=== PATIENT | male | born 1960 | race Caucasian/White ===

== ENCOUNTER → 2018-05-11 10:56 | Outpatient (CLI) | payer MEDICAID, SELFPAY ==
[2018-05-11 12:49] LABS: Thyroid Stim Hormone (TSH) 2.08 uIU/mL (0.358-3.74)
[2018-05-12 07:07] LABS: Thyroid Peroxidase AB 13 IU/mL (0-34)
[2018-05-12 08:28] LABS: T3 Total - Triiodothyronine 1.13 ng/mL (0.6-1.81)
== END ==
PROVIDERS: Family Provider Internal Medicine; PCP Internal Medicine; Visit Provider Dermatology Pediatric Dermatology
DX: E03.8 Other specified hypothyroidism (principal); D22.5 Melanocytic nevi of trunk; L71.8 Other rosacea; L80 Vitiligo; L57.3 Poikiloderma of Civatte
CPT/HCPCS: 36415; 84439; 84443; 84480; 86376

== ENCOUNTER 2022-07-01 12:34 | Emergency (ER) | payer MEDICAID, SELFPAY ==
[2022-07-01 12:35] VITALS: BP 136/83; PULSE 96; RESP 14; TEMP 36.1; O2SAT 96; BMI 27.0
--- NOTE | 2022-07-01 13:04 | RAD_ITS ---
EXAM: XR RIGHT KNEE COMPLETE, 4 OR MORE VIEWS CLINICAL INDICATION: fall TECHNIQUE: Four or more views of the right knee. This report was created using [employer] report generation technology. COMPARISON: None. FINDINGS: BONES/JOINTS: Unremarkable. No acute fracture. No subluxation. Normal alignment. Preservation of the joint space. No sclerotic or destructive changes observed. SOFT TISSUES: Unremarkable. No soft tissue swelling or gas. No radiopaque foreign body. RAD/Knee 4 or More Views IMPRESSION: Negative right knee x-rays. Electronically Signed: Brandon Rodrigez MD at 13:46 EDT ,
--- NOTE | 2022-07-01 13:04 | CT_ITS ---
EXAM: CT MAXILLOFACIAL WITHOUT INTRAVENOUS CONTRAST CLINICAL INDICATION: fall, nasal injury TECHNIQUE: Helically acquired images were obtained of the face without intravenous contrast. This CT exam was performed using one or more of the following dose reduction techniques: automated exposure control, adjustment of the mA and/or kV according to patient size, and/or use of iterative reconstruction technique. This report was created using [employer] report generation technology. COMPARISON: None. FINDINGS: BONES/JOINTS: There is minimal irregularity of the anterior left nasal bone which may represent a nondisplaced fracture. No other fractures are identified. No discrete lytic or blastic abnormalities. SOFT TISSUES: Unremarkable. No focal subcutaneous swelling. No discrete fluid collections. ORBITS: Unremarkable. Both globes are unremarkable. Extraocular muscles are normal. Retrobulbar fat appears unremarkable. SINUSES: Unremarkable as visualized. Clear. MASTOID AIR CELLS: Unremarkable as visualized. Clear. DENTAL: No acute findings. No periodontal osseous erosion. CT/Sinus/Facial Bone IMPRESSION: Minimal irregularity of the anterior left nasal bone which may represent a nondisplaced fracture. No other abnormalities are identified. Electronically Signed: Brandon Rodrigez MD at 14:05 EDT ,
--- NOTE | 2022-07-01 14:15 | EX.ED.DYSGE1 ---
HPI History of Present Illness Chief Complaint: Other, Pain/Inj Narrative Narrative: Patient is a 62-year-old male with no significant medical history presents to the emergency department after falling, striking his right knee, nose. He denies any LOC. Patient is currently on any anticoagulation medicine. Patient states due to his nose swelling, having increased pain he is here for evaluation. [facility] Medical History (Updated 07/01/22 @ 14:23 by DARYL Onofre) Cornea transplant recipient History of broken leg Home Medications Prednisolone Eye Drops (1 Ml) [Pred Forte Eye Drops (1 Ml)] 1 drp DAILY 04/06/17 [History Last Taken Unknown] Allergy/AdvReac Type Severity Reaction Status Date / Time Iodinated Contrast Media AdvReac Vomiting Verified 07/01/22 12:35 [CONTRASTS] Surgical History (Updated 07/01/22 @ 12:48 by Amanda Garcia) History of hernia surgery Social History Smoking Status: Former smoker ROS ROS ED ROS Narrative Constitutional: Negative for fever, chills, weight loss, weakness Eyes: Negative for vision loss, vision change, double vision ENT: Negative for any sore throat, ear pain, congestion. Positive for nasal pain Cardiovascular: Negative for any chest pain, tightness, palpitations Respiratory: Negative for any cough, sputum production, hemoptysis, dyspnea, dyspnea on exertion, orthopnea Gastrointestinal: Negative for any abdominal pain, nausea, vomiting, diarrhea, constipation, blood in stool, blood in vomit : Negative for any urinary frequency, dysuria, retention, blood in urine Muscle skeletal: Negative for any muscle joint pain, stiffness, myalgias, arthralgias, neck pain, back pain. Positive right knee pain Neurological: Negative for any headache, syncope, numbness or tingling, dizziness Skin: Negative for any rashes, lumps, itching, abrasions, lacerations Psychiatric: Negative for any depression, anxiety, stress, suicidal ideation, homicidal ideation Hematologic: Negative for any easy bruising, excessive bruising, easy bleeding Allergies: Negative for any eczema, hives, rash EXAM Physical Exam Narrative Exam Narrative: Vital signs reviewed. HEET: Head normocephalic atraumatic, TMs clear bilaterally. Posterior pharynx is clear, moist mucous membranes. Nares clear bilaterally. Pupils are equal round reactive to light. Negative for any hemotympanum, septal hematoma. Negative for any brandon sign. Patient does have some edema, abrasion to the bridge of the nose. Dried blood around the nares Neck: Supple with no lymphadenopathy or tenderness. No signs of meningismus, negative jolt sign. Cardiac: Regular rate and rhythm no murmurs gallops or rubs, equal peripheral pulses bilaterally. Respiratory: Lungs clear to auscultation bilaterally. No chest tenderness. Abdomen: Soft, nontender, nondistended. No abdominal bruit or pulsatile masses. No hepatosplenomegaly Extremities: No peripheral edema, no signs of gross trauma or deformity. Active full range of motion of all extremities. Intact extensor mechanism, some ecchymosis, edema to the distal patella Neuro: Cranial nerves II through XII intact, no focal neurological deficits. Skin: Clean dry and intact with no rash, purpura, petechiae, vesicles or pustules. Backs/flank: No CVA tenderness, no midline spinal tenderness, no deformity. Psych: Normal mood and affect. No SI, HI or acute psychosis. Const Vital Signs: 07/01/22 12:35 Temperature 96.9 F L Temperature Source Temporal Pulse Rate 96 Respiratory Rate 14 Blood Pressure 136/83 H Blood Pressure Mean 100 Pulse Ox 96 Oxygen Delivery Method Room Air Positive well nourished and well developed General Appearance ED: well developed MDM MDM Radiography Diagnostic Testing: Clinical Impression(s) from Imaging Studies Facial/Sinus 07/01/22 13:04 IMPRESSION: Minimal irregularity of the anterior left nasal bone which may represent a nondisplaced fracture. No other abnormalities are identified. Electronically Signed: Brandon Rodrigez MD at 14:05 EDT , Knee X-Ray 07/01/22 13:04 IMPRESSION: Negative right knee x-rays. Electronically Signed: Brandon Rodrigez MD at 13:46 EDT , Treatment and Re-Evaluation Narrative: Patient appears well, patient appears nontoxic, vital signs are stable. Patient presents to the emergency department with complaints of a nasal pain, right knee pain following a mechanical fall. Patient did receive a CT scan of the sinus and facial bones, this showed a minimal irregularity of the anterior left nasal bone which may represent a nondisplaced fracture. Patient's x-ray of the right knee internal by ER physician was unremarked for any acute process. Patient will take ibuprofen, Tylenol for home, he will be instructed to ice his nose. Patient will be given ENT follow-up if he chooses, instructed return for any worsening symptoms. Discharge Plan Triage Chief Complaint: Other, Pain/Inj ED Midlevel Provider: Taurus Beck ED Provider: Sandro Fishman Dx/Rx/DC Orders Clinical Impression: Fall, Abrasion of face, Closed nondisplaced fracture of nasal bone, Contusion of knee, right Instructions: ED Soft Tissue Contusion, ED Nose Fracture, with X-Ray Prescriptions: No Action Prednisolone Eye Drops (1 Ml) [Pred Forte Eye Drops (1 Ml)] 1 DROP Opth.Btl 1 drp Right Eye DAILY Primary Care Provider: Tuan Hull Referrals: Gee Walden MD [Med Staff - Active Staff] - (Please follow-up as needed) Tuan Hull MD [Primary Care Provider] - Activity Restrictions/Additional Instructions: Ensure that you ice your face, bruising will happen throughout your eyes, and will come down to your cheeks secondary to gravity. Please follow-up with ear nose and throat doctor if needed. Use ibuprofen and Tylenol. Disposition Disposition: Home, Self Care
[2022-07-01 14:31] VITALS: BP 120/85; PULSE 64; RESP 16; O2SAT 99
== END 2022-07-01 14:34 | disposition home or self-care (01) ==
PROVIDERS: Emergency Provider Emergency Medicine; PCP Internal Medicine; Visit Provider Emergency Medicine
DX: S02.2XXA Fracture of nasal bones, initial encounter for closed fracture (principal); S00.31XA Abrasion of nose, initial encounter; S80.01XA Contusion of right knee, initial encounter; S00.81XA Abrasion of other part of head, initial encounter; W19.XXXA Unspecified fall, initial encounter; Z87.891 Personal history of nicotine dependence; Z94.7 Corneal transplant status
CPT/HCPCS: 70486; 73564; 99282